=== PATIENT | female | born 1980 | race Caucasian/White ===

== ENCOUNTER 2019-11-19 12:29 | Inpatient (IN) ==
[2019-11-19 13:26] LABS: URINE SOURCE CLEAN CATCH
[2019-11-19 13:37] LABS: BILIRUBIN URINE NEGATIVE (NEGATIVE); BLOOD URINE NEGATIVE (NEGATIVE); COLOR YELLOW; GLUCOSE URINE NEGATIVE (NEGATIVE); KETONE URINE TRACE mg/dL (NEGATIVE); LEUKOCYTES URINE NEGATIVE (NEGATIVE); NITRITE URINE NEGATIVE (NEGATIVE); PROTEIN URINE 30 mg/dL (NEGATIVE); SP GRAVITY URINE 1.026; TURBIDITY URINE CLEAR (CLEAR); UROBILINOGEN URINE 2 mg/dL (NORMAL)
[2019-11-19 13:39] LABS: UR EPITHELIAL CELLS <10 /HPF (<10); URINE BACTERIA NEGATIVE /HPF; URINE RBC <10 /HPF (<10); URINE WBC <10 /HPF (<10)
[2019-11-19 13:49] LABS: BASO# 0.04 X1000 (0.0-0.2); BASO% 0.3 % (0.0-0.8); EOS# 0.04 X1000 (0.0-0.7); EOS% 0.3 % (0.0-10.0); HEMATOCRIT 15.5 % (37.0-47.0); IMM GRAN# 0.11 X1000 (0.0-0.04); IMM GRAN% 0.7 % (0.0-0.5); LYMPH# 2.55 X1000 (1.2-3.4); LYMPH% 16.6 % (20.5-51.1); MCH 27.3 PG (27-31); MCV 93.9 FL (81-99); MONO# 0.76 X1000 (0.11-0.59); MONO% 4.9 % (1.7-9.3); MPV 9.4 FL (7.4-10.4); NEUT% 77.2 % (42.2-75.2); PLT 601 X1000 (130-400); RBC 1.65 XMIL (4.2-5.4)
[2019-11-19 13:51] LABS: HEMOGLOBIN 4.5 g/dL (12.0-16.0)
[2019-11-19 13:58] LABS: ANISOCYTOSIS 1+; EOS 2 % (1-10); HYPOCHROM 1+; LYMPHS 14 % (21-51); MICROCYTOSIS 1+; MONO 3 % (1-9); SEGS 81 % (42-75)
[2019-11-19] MEDS ORDERED: NS 500 ML IV ONE (14:05)
[2019-11-19 14:15] LABS: AGAP 15; ALBUMIN 3.6 g/dL (3.5-5.0); ALKALINE PHOSPHATASE 148 U/L (32-104); BUN 11 mg/dL (8-22); CALCIUM 8.4 mg/dL (8.8-10.2); CHLORIDE 103 mmol/L (98-107); COSMO 276; CREATININE 0.8 mg/dL (0.5-0.9); ESTIMATED GFR > 60; GLUCOSE 78 mg/dL (70-104); GOT 13 U/L (10-30); GPT 7 U/L (10-36); LIPASE 9 U/L (13-60); POTASSIUM 3.3 mmol/L (3.5-5.1); SODIUM 139 mmol/L (136-145); TCO2 21 mmol/L (25-35); TOTAL PROTEIN 7.2 g/dL (6.3-8.3)
[2019-11-19 14:18] LABS: TOTAL BILIRUBIN < 0.15 mg/dL (0.20-1.00)
[2019-11-19 14:44] LABS: INR 0.94; PROTIME 12.6 Seconds (11.0-16.0)
[2019-11-19 14:45] LABS: PTT 33.7 Seconds (22.3-41.8)
--- NOTE | 2019-11-19 15:24 | Diag Imaging Result Doc PS360 ---
US PELVIC NON-OB COMPLETE - 11/19/2019 INDICATION: post miscarriage, eval for retained products TECHNIQUE: Endovaginal COMPARISON: 10/12/2019 FINDINGS: The endometrial canal is thickened and contains heterogeneous echogenic tissue. This measures up to 2.9 cm in maximum width. No pelvic free fluid. Both ovaries are normal. The right ovary measures 2.8 x 1.2 x 1.3 cm. The left ovary measures 2.1 x 1 x 1 cm. Normal ovarian blood flow. IMPRESSION: Findings concerning for retained products of conception in the endometrium. Electronically signed by Nando Calloway 11/19/2019 3:21 PM
[2019-11-19 16:30] LABS: UR AMPHETAMINES QUAL PRESUMPTIVE POSITIVE (NONE DETECT); UR BARBITUATES QUAL PRESUMPTIVE POSITIVE (NONE DETECT); UR BENZODIAZEPIN QUAL PRESUMPTIVE POSITIVE (NONE DETECT); UR CANNABINOIDS QUAL PRESUMPTIVE POSITIVE (NONE DETECT); UR COCAINE QUAL NONE DETECTED (NONE DETECT); UR METHADONE QUAL NONE DETECTED (NONE DETECT); UR OPIATES QUAL NONE DETECTED (NONE DETECT); UR OXYCODONE QUAL NONE DETECTED (NONE DETECT); UR PCP QUAL NONE DETECTED (NONE DETECT)
[2019-11-19] MEDS ORDERED: LR 1,000 ML IV SCH (17:15)
--- NOTE | 2019-11-19 17:53 | PROVIDER DOCUMENTATION ---
This chart was entered by Bisi Nathan Scribe, acting as scribe for Luis Alfredo Cummings MD. HPI-Female /OB/Breast - General Chief Complaint: Female Stated Complaint: EXTREMITY PAIN FROM MISCARRAIGE Time Seen by Provider: 11/19/19 13:55 Source: reports: patient Allergies/Adverse Reactions: Patient Allergies Allergy/AdvReac Type Severity Reaction Status Date / Time sulfamethoxazole Allergy HIVES Verified 11/19/19 13:59 [From Bactrim] trimethoprim [From Bactrim] Allergy HIVES Verified 11/19/19 13:59 Home Medications: Home Medication List Medication Instructions Recorded Confirmed Last Taken Type Buprenorphine/Naloxone S.l. 1 ea SUBLINGUAL QAM 11/19/19 11/19/19 1 Day Ago History [Suboxone 8 mg/2 mg Film] ~11/18/19 - History of Present Illness-Female /OB Nature of Presenting Problem: Patient is a 39 year old female who presents with vaginal bleeding. States back pain and shortness of breath with vaginal bleeding. Reports she was and did not know she was. States her water broke on October 09, 2019 then she was seen at [facility] on October 12, 2019 and was informed that she was and her cervix was closed. Reports she delivered the fetus on October 13 at home. Denies seeing by a doctor after. Does patient report she is ?: No Location of complaint: reports: vaginal Quality of Pain: reports: none Severity in ED: reports: moderate Onset/Duration: reports: gradual Timing: reports: still present Context/Activities at Onset: reports: light activity Vaginal Bleeding Amount: Copious/Excessive Associated Symptoms: reports: back/neck pain (back pain), other (shortness of breath) Similar Symptoms Previously?: Yes Recently seen or treated by another doctor?: Yes Review of Systems - Adult - REVIEW OF SYSTEMS - ADULT Constitutional: reports: no symptoms reported Eyes: reports: no symptoms reported Ears, Nose, Mouth & Throat: reports: no symptoms reported Cardiovascular: reports: no symptoms reported Respiratory: reports: see HPI, shortness of breath Gastrointestinal: reports: no symptoms reported Genitourinary: reports: see HPI, other (vaginal bleeding) Musculoskeletal: reports: see HPI, back pain Integumentary: reports: no symptoms reported Neurological: reports: no symptoms reported Psychiatric: reports: no symptoms reported Endocrine: reports: no symptoms reported Hematologic/Lymphatic: reports: no symptoms reported Allergic/Immunologic: reports: no symptoms reported All Other Systems: Reviewed and Negative Past History - Adult - PAST MEDICAL HISTORY-ADULT Review of Records: reports: Old Records Reviewed, Nursing Assessment Review, Medications Reviewed, Social history reviewed & non-contributory. Major Childhood Illnesses: reports: denies history Cardiovascular: reports: HTN Respiratory: reports: denies history Gastrointestinal: reports: denies history Obstetrical/Gynecological: reports: other (cervical ca) Genitourinary: reports: denies history Musculoskeletal: reports: chronic pain Neurological: reports: Seizures/Epilepsy Psychiatric: reports: anxiety, other (opioid addiction) Endocrine/Immune: reports: denies history Other Conditions: reports: denies history - PRIOR SURGERIES/PROCEDURES Surgical/Procedure History: reports: other (cervix) - PRIOR HOSPITALIZATIONS Prior Hospitalizations: reports: none - IMMUNIZATION STATUS Childhood Immunizations: UTD, See Nurse Assessment Flu Vaccine: See Nurse Assessment - FAMILY HISTORY Family History: reviewed, not pertinent - SOCIAL HISTORY Smoking: cigarettes, less than 1 pack/day Provider spent 3-5 mins advising pt. on dangers of tobacco.: Discussed manners to quit use, and f/u contacts for add'l counseling. Substance Use: denies Physical Exam-General - PHYSICAL EXAM-ADULT Initial Vital Signs Reviewed: Yes - CONSTITUTIONAL General Appearance: alert, no apparent distress - EYES Eyes: pale conjunctivae - HEAD, EARS, NOSE, MOUTH & THROAT HENMT: normocephalic/atraumatic, other (poor dentition) - RESPIRATORY Respiratory: chest non-tender, lungs clear, normal breath sounds - CARDIOVASCULAR Cardiovascular: no gallop, no murmur, tachycardia - GASTROINTESTINAL (ABDOMEN) Abdominal Exam: normal bowel sounds, non tender, soft - SKIN Integumentary: normal turgor, warm/dry, pallor - NEUROLOGIC Neurologic: grossly normal - PSYCHIATRIC Psych/Mental Status: normal mood/affect, normal thought content, normal thought process, oriented x 3 Progress - PLAN OF CARE/RESULTS Progress/Plan/Lab Results: Vital Signs - 8 hr 11/19/19 12:38 11/19/19 14:25 11/19/19 15:13 Temperature 98.2 F 98 F 98 F Pulse Rate 123 H 116 H 102 H Respiratory Rate 19 18 18 Blood Pressure 128/72 109/70 112/82 O2 Sat by Pulse Oximetry 100 100 97 01/21/20 15:55 11/19/19 16:16 11/19/19 16:18 Temperature 98.2 F 98.4 F 98.2 F Pulse Rate 105 H 117 H 98 H Respiratory Rate 16 18 16 Blood Pressure 112/82 104/72 110/89 O2 Sat by Pulse Oximetry 95 96 99 11/19/19 17:24 11/19/19 17:58 Temperature 98.4 F 98.4 F Pulse Rate 100 H 106 H Respiratory Rate 18 18 Blood Pressure 106/76 116/86 O2 Sat by Pulse Oximetry 97 96 Bedside Urine ED: Urine Bedside Start: 11/19/19 12:52 Freq: ORDERED Status: Active Protocol: Activity Type Activity Date Activity User E-Sign Co-Sign Detail Recorded Client Recorded Date Recorded By Document 11/19/19 14:22 [id number] 11/19/19 14:22 [id number] 11/19/19 14:22 Point of Care [Bedside Point of Care] -Lot # NA - Results Negative -Control Line Visible? No Laboratory Results - last 24 hr 11/19/19 11/19/19 11/19/19 12:48 12:48 12:48 WBC 15.40 H RBC 1.65 L Hgb 4.5 L* Hct 15.5 L MCV 93.9 MCH 27.3 MCHC 29.0 L RDW Std Deviation 15.0 H Plt Count 601 H MPV 9.4 Immature Gran % (Auto) 0.7 H Neut % (Auto) 77.2 H Lymph % (Auto) 16.6 L Cobb % (Auto) 4.9 Eos % (Auto) 0.3 Baso % (Auto) 0.3 Immature Gran # (Auto) 0.11 H Neut # (Auto) 11.90 H Lymph # (Auto) 2.55 Cobb # (Auto) 0.76 H Eos # (Auto) 0.04 Baso # (Auto) 0.04 Segmented Neutrophils 81 H Lymphocytes 14 L Monocytes 3 Eosinophils 2 Hypochromia 1+ Anisocytosis 1+ Microcytosis 1+ PT INR PTT (Actin FS) Sodium 139 Potassium 3.3 L Chloride 103 Carbon Dioxide 21 L Anion Gap 15 BUN 11 Creatinine 0.8 Estimated GFR/1.73 m2 > 60 BUN/Creatinine Ratio 14 Glucose 78 Calculated Osmolality 276 Calcium 8.4 L Total Bilirubin < 0.15 L AST 13 ALT 7 L Alkaline Phosphatase 148 H Total Protein 7.2 Albumin 3.6 Globulin 3.6 Albumin/Globulin Ratio 1.0 Lipase 9 L Ser , Semi-Qnt 28.4 Urine Source Urine Color Urine Turbidity Urine pH Ur Specific Henderson Urine Protein Ur Glucose (Stick) Ur Ketones (Stick) Urine Blood Urine Nitrite Urine Bilirubin Urobilinogen Dipstick Urine Leukocytes Urine WBC (Auto) Urine RBC (Auto) U Epithel Cells (Auto) Urine Bacteria (Auto) Urine Test Urine Opiates Screen Ur Oxycodone Screen Ur Methadone, Qual Ur Barbiturates Screen Ur Phencyclidine Scrn Ur Amphetamines Screen U Benzodiazepines Scrn Urine Cocaine Screen U Cannabinoids Screen Blood Type Antibody Screen Crossmatch 11/19/19 11/19/19 11/19/19 12:50 12:50 12:50 WBC RBC Hgb Hct MCV MCH MCHC RDW Std Deviation Plt Count MPV Immature Gran % (Auto) Neut % (Auto) Lymph % (Auto) Cobb % (Auto) Eos % (Auto) Baso % (Auto) Immature Gran # (Auto) Neut # (Auto) Lymph # (Auto) Cobb # (Auto) Eos # (Auto) Baso # (Auto) Segmented Neutrophils Lymphocytes Monocytes Eosinophils Hypochromia Anisocytosis Microcytosis PT INR PTT (Actin FS) Sodium Potassium Chloride Carbon Dioxide Anion Gap BUN Creatinine Estimated GFR/1.73 m2 BUN/Creatinine Ratio Glucose Calculated Osmolality Calcium Total Bilirubin AST ALT Alkaline Phosphatase Total Protein Albumin Globulin Albumin/Globulin Ratio Lipase Ser , Semi-Qnt Urine Source CLEAN CATCH Urine Color YELLOW Urine Turbidity CLEAR Urine pH 6.0 Ur Specific Henderson 1.026 Urine Protein 30 A Ur Glucose (Stick) NEGATIVE Ur Ketones (Stick) TRACE A Urine Blood NEGATIVE Urine Nitrite NEGATIVE Urine Bilirubin NEGATIVE Urobilinogen Dipstick 2 A Urine Leukocytes NEGATIVE Urine WBC (Auto) <10 Urine RBC (Auto) <10 U Epithel Cells (Auto) <10 Urine Bacteria (Auto) NEGATIVE Urine Test WEAK POSITIVE Urine Opiates Screen NONE DETECTED Ur Oxycodone Screen NONE DETECTED Ur Methadone, Qual NONE DETECTED Ur Barbiturates Screen PRESUMPTIVE POSITIVE A Ur Phencyclidine Scrn NONE DETECTED Ur Amphetamines Screen PRESUMPTIVE POSITIVE A U Benzodiazepines Scrn PRESUMPTIVE POSITIVE A Urine Cocaine Screen NONE DETECTED U Cannabinoids Screen PRESUMPTIVE POSITIVE A Blood Type Antibody Screen Crossmatch 11/19/19 11/19/19 14:00 14:00 WBC RBC Hgb Hct MCV MCH MCHC RDW Std Deviation Plt Count MPV Immature Gran % (Auto) Neut % (Auto) Lymph % (Auto) Cobb % (Auto) Eos % (Auto) Baso % (Auto) Immature Gran # (Auto) Neut # (Auto) Lymph # (Auto) Cobb # (Auto) Eos # (Auto) Baso # (Auto) Segmented Neutrophils Lymphocytes Monocytes Eosinophils Hypochromia Anisocytosis Microcytosis PT 12.6 INR 0.94 PTT (Actin FS) 33.7 Sodium Potassium Chloride Carbon Dioxide Anion Gap BUN Creatinine Estimated GFR/1.73 m2 BUN/Creatinine Ratio Glucose Calculated Osmolality Calcium Total Bilirubin AST ALT Alkaline Phosphatase Total Protein Albumin Globulin Albumin/Globulin Ratio Lipase Ser , Semi-Qnt Urine Source Urine Color Urine Turbidity Urine pH Ur Specific Henderson Urine Protein Ur Glucose (Stick) Ur Ketones (Stick) Urine Blood Urine Nitrite Urine Bilirubin Urobilinogen Dipstick Urine Leukocytes Urine WBC (Auto) Urine RBC (Auto) U Epithel Cells (Auto) Urine Bacteria (Auto) Urine Test Urine Opiates Screen Ur Oxycodone Screen Ur Methadone, Qual Ur Barbiturates Screen Ur Phencyclidine Scrn Ur Amphetamines Screen U Benzodiazepines Scrn Urine Cocaine Screen U Cannabinoids Screen Blood Type A POSITIVE Antibody Screen NEGATIVE Crossmatch See Detail Orders Category Date Time Status [facility] Routine [id number] 11/19/19 17:01 Active Consent for Surgery DIRECTED Care 11/19/19 17:01 Active Consent for Test/Procedure DIRECTED Care 11/19/19 14:05 Active ED: Urine Bedside ORDERED Care 11/19/19 12:52 Active Misc. NRSG Communication Order DIRECTED Care 11/19/19 17:01 Active Notify MD if DIRECTED Care 11/19/19 14:05 Active Notify MD if DIRECTED Care 11/19/19 17:01 Active Transfuse .Give-Transfuse Care 11/19/19 14:06 Active Vital Signs Order Q 4-HR ASSESS Care 11/19/19 17:01 Active NPO Diet 11/19/19 12:52 Active US PELVIC NON-OB COMPLETE [US] Stat Exams 11/19/19 14:07 Completed CBC WITH DIFF [HEME] Stat Lab 11/19/19 12:48 Completed CBC WITH NO DIFF [HEME] Timed Lab 11/20/19 06:00 Uncollected COMPREHENSIVE METABOLIC PANEL [CHEM] Stat Lab 11/19/19 12:48 Completed LIPASE [CHEM] Stat Lab 11/19/19 12:48 Completed LRPC (RED CELLS) [BBK] Stat Lab 11/19/19 14:00 Results TEST-URINE [PREG] Stat Lab 11/19/19 12:50 Completed PROTIME WITH INR [COAG] Stat Lab 11/19/19 14:00 Completed PTT [COAG] Stat Lab 11/19/19 14:00 Completed QUANT TEST Stat Lab 11/19/19 12:48 Completed TYPE & SCREEN [BBK] Stat Lab 11/19/19 14:00 Results UA NIMS W/REFLEX CULT [URINALYSIS] Stat Lab 11/19/19 12:50 Completed URINE DRUG SCREEN Stat Lab 11/19/19 12:50 Completed 0.9% Sodium Chloride Inj [Ns] 500 ml Med 11/19/19 14:05 Active IV 30 mls/hr Lactated Ringers Inj [Lr] 1,000 ml Med 11/19/19 17:15 Active IV 125 mls/hr Abd Pain/OB <20 weeks Stat Oth 11/19/19 12:51 Ordered 1505 - Dr. Brown assessed the patient in the ED. Dr. Brown states the patient's cervix is closed and she does not have active bleeding currently. Plan for admission to Dr. Brown. Result Diagrams: 11/19/19 12:48 11/19/19 12:48 - ULTRASOUND (By Radiology) 1 US Study: Pelvic Impression: See EMR Report ( US PELVIC NON-OB COMPLETE - 11/19/2019 INDICATION: post miscarriage, eval for retained products TECHNIQUE: Endovaginal COMPARISON: 10/12/2019 FINDINGS: The endometrial canal is thickened and contains heterogeneous echogenic tissue. This measures up to 2.9 cm in maximum width. No pelvic free fluid. Both ovaries are normal. The right ovary measures 2.8 x 1.2 x 1.3 cm. The left ovary measures 2.1 x 1 x 1 cm. Normal ovarian blood flow. IMPRESSION: Findings concerning for retained products of conception in the endometrium. Electronically signed by Nando Calloway 11/19/2019 3:21 PM 11/19/19 1521 Interpreting Physician: Nando Calloway MD Dictated Date/Time: 11/19/19 1516 cc: Luis Alfredo Cummings MD; None,PCP) - CONSULTS/PCP/HOSPITALIST Notification #1 *Consult/PCP/Hospitalist*: Dr. Brown paged at [phone] Time Discussed: 14:50 Reason/Comments: Dr. Cummings consulted with Dr. Brown about patient. Consult Disposition: Will see in ED #2 Consult: Dr. Brown Time Discussed: 15:31 Reason/Comments: Dr. Cummings updated Dr. Brown about patient's US #3 Consult: Dr. Brown Time Discussed: 16:49 Reason/Comments: Dr. Cummings consulted with Dr. Brown about patient. Consult Disposition: Admit Departure - Departure Date of Disposition Decision: 11/19/19 Time of Disposition Decision: 16:49 DIAGNOSIS: Retained products of conception Anemia Qualifiers: Anemia type: unspecified type Qualified Code(s): D64.9 - Anemia, unspecified Disposition: ADMITTED INPATIENT 09 Certified Medical Emergency: Emergent Condition: Serious Referrals and Follow-Ups: None,PCP [Primary Care Provider] - - Critical Care Note This patient required my direct & personal management of CC.: Yes Total Time (mins): 34 Critical Care Statement: This patient required my direct personal management to treat or rule out processes, the absence of which, could potentiallly result in sudden, clinically significant life or limb threatening deterioration. Attestation - Physician/ TSERING Attestation The physician spent face to face time with patient:: Yes Advanced Practice Provider documentation review:: Supervising physician onsite and consulted in the evaluation and care of this patient. The physician did have a face to face encounter with the patient. This chart was documented by the indicated scribe, (Bisi aNthan Scribe) and accurately reflects the services I performed and decisions made by me, Luis Alfredo Cummings MD, as attested by the provider's signature.
--- NOTE | 2019-11-19 20:27 | HISTORY AND PHYSICAL ---
HISTORY OF PRESENT ILLNESS: Ms. Pat is a 39-year-old white female G9, P1-3-5-1 with a history of multiple spontaneous abortions and elective abortions who presents to [facility] with a complaint of abnormal uterine bleeding. Current history is significant for an IUFD diagnosed at 19 weeks' gestation on 10/12/2019 at [facility]. The patient was discharged from [facility] with p.o. doxycycline 500 mg b.i.d. for 7 days and 2 days after discharge, the patient reports on 10/14/2019 having a spontaneous . However, after the patient continued to bleed, passing 6 cm clots 1 to 2 times a day. The patient is unsure if she passed placenta. Since delivery of 19 week fetus, the patient has been experiencing exhaustion, shortness of breath, tachycardia with the abnormal bleeding. She denies fevers, chills, or chest pain. PAST MEDICAL HISTORY: Cervical dysplasia, cervical insufficiency, hypertension diagnosed between 2011 and 2013 resolved with clonidine. CURRENT MEDICATIONS: None. ALLERGIES: Bactrim, reaction is hives. SURGICAL HISTORY: Dilation and curettage x3, LEEP procedure, cold knife cone procedure. OBSTETRICAL HISTORY: G9, P1-3-5-1. One full-term vaginal delivery. Three IUFDs greater than 20 weeks. Five spontaneous abortions. [employer] HISTORY: Last menstrual period 06/13/2019. Spotting at the time. Menarche age 16. Admits to a history of Chlamydia and Trichomonas exposure. PAST FAMILY HISTORY: Brother with unknown hemophilia. SOCIAL HISTORY: Positive tobacco use. Admits to half a pack per day. Positive alcohol use. Positive illicit drug use. Admits to using Suboxone and Xanax. PHYSICAL EXAMINATION: VITAL SIGNS: Temperature 98.4 degrees, pulse rate 100, respiration rate 18, blood pressure 106/76, O2 saturation 97% on room air, body mass index 19 kg/m2. GENERAL: No acute distress. Alert, awake, and oriented x3. CARDIOVASCULAR: Positive S1, S2. RESPIRATORY: Clear to auscultation bilaterally. Negative rhonchi, rales, or wheezing. ABDOMEN: Soft, nontender to palpation. PELVIC: Sterile speculum exam: Cervix is closed. No active bleeding noted. Bimanual exam: Retroverted uterus, approximately 8 to 10 cm in size, mobile. Negative cervical motion tenderness. EXTREMITIES: No calf tenderness. Negative pedal edema. LABORATORY STUDIES: WBC 15.4, hemoglobin 4.5, hematocrit 15.5, platelets 601,000. PT 12.6, INR 0.94, PTT 33.7. Creatinine 0.8. Beta HCG quantitative 28.4. Urine drug screen positive for barbiturates, amphetamines, benzodiazepine, cannabinoids. IMAGING STUDIES: Pelvic ultrasound: The endometrial canal is thickened and contains heterogeneous echogenic tissue that measures 2.9 cm in maximum width. No pelvic free fluid. Normal ovarian blood flow. Impression concerning for retained products of conception in the endometrium. ASSESSMENT: Ms. Pat is a 39-year-old 9, para 1-3-5-1, status post delivery of an intrauterine demise at 19 weeks on 10/14/2019, who presents with severe anemia. PLAN: 1. Will admit to Labor and Delivery for observation. 2. Beta HCG quantitative significantly low at 28.4 and patient not actively bleeding. Recommend expected management versus surgical management secondary to admission of illicit drug use, low quantitative, and no active bleeding. 3. Will aggressively replenish replace with packed red blood cells. Plan for 4 units and repeat CBC in the morning. 4. We will monitor closely for active bleeding and possible suction D and C if necessary. 5. Patient counseled on risk of expectant management and possibility of a suction D and C. Risks not limited to infection, bleeding, injury to surrounding organs including uterine puncture, injury to the bowel, bladder, or ureters. The patient understands risk and agrees to plan.
[2019-11-19] MEDS ORDERED: NS 500 ML IV SCH (21:00)
[2019-11-20 05:40] LABS: HEMATOCRIT 32.6 % (37.0-47.0); HEMOGLOBIN 10.5 g/dL (12.0-16.0); MCH 28.5 PG (27-31); MCHC 32.2 g/dL (33-37); MCV 88.3 FL (81-99); MPV 9.1 FL (7.4-10.4); RBC 3.69 XMIL (4.2-5.4); WBC 12.61 X1000 (4.8-10.8)
--- NOTE | 2019-11-20 08:09 | OB/GYN PROGRESS NOTE ---
- Subjective 39 yo 5 weeks s/p SAB of IUFD at 19 weeks with anemia,? retained POCs, illicit drug use, Hx recurrent SAB, Hx cervical dysplasia, Hx cervical insufficiency Patient seen and examined. She notes some vaginal bleeding overnight, dark red. Pad with minimal blood on it currently. She received 4 u PRBCs and hgb johnie appropriately from 4.5>10.5. She denies any nausea,vomiting, fever,chills. She has ambulated in the room and denies dizziness/lightheadedness. OB Physical Exam Vital Signs - 8 hr 11/20/19 00:42 11/20/19 01:01 11/20/19 03:15 Temperature 98.3 F 98.5 F 98.4 F Pulse Rate 97 H 96 H 84 Respiratory Rate 18 18 18 Blood Pressure 123/69 131/79 113/66 O2 Sat by Pulse Oximetry 100 100 - CONSTITUTIONAL General Appearance: alert, no apparent distress, thin - EYES Eyes: PERRL/EOMI - HEAD, EARS, NOSE, MOUTH & THROAT HENMT: normocephalic/atraumatic - RESPIRATORY Respiratory: lungs clear, normal breath sounds, no respiratory distress - CARDIOVASCULAR Cardiovascular: regular rate, rhythm, no edema - GASTROINTESTINAL (ABDOMEN) Abdominal Exam: non tender, soft - MUSCULOSKELETAL Extremity: normal range of motion, non-tender, no pedal edema - NEUROLOGIC Neurologic: grossly normal - PSYCHIATRIC Psych/Mental Status: disheveled Active Medications Generic Name Dose Route Start Last Admin Trade Name Freq PRN Reason Stop Dose Admin Sodium Chloride 500 mls @ 30 mls/hr 11/19/19 21:00 11/19/19 21:46 Ns IV 30 mls/hr .[id number] DARIELA Administration Bedside Urine ED: Urine Bedside Start: 11/19/19 12:52 Freq: ORDERED Status: Complete Protocol: Activity Type Activity Date Activity User E-Sign Co-Sign Detail Recorded Client Recorded Date Recorded By Document 11/19/19 14:22 [id number] 11/19/19 14:22 [id number] Edit Status 11/19/19 20:50 [id number] Active=>Complete [id number] 11/19/19 20:50 [id number] 11/19/19 14:22 Point of Care [Bedside Point of Care] -Lot # NA - Results Negative -Control Line Visible? No Laboratory Results - last 24 hr 11/19/19 11/19/19 11/19/19 12:48 12:48 12:48 WBC 15.40 H RBC 1.65 L Hgb 4.5 L* Hct 15.5 L MCV 93.9 MCH 27.3 MCHC 29.0 L RDW Std Deviation 15.0 H Plt Count 601 H MPV 9.4 Immature Gran % (Auto) 0.7 H Neut % (Auto) 77.2 H Lymph % (Auto) 16.6 L [place] % (Auto) 4.9 Eos % (Auto) 0.3 Baso % (Auto) 0.3 Immature Gran # (Auto) 0.11 H Neut # (Auto) 11.90 H Lymph # (Auto) 2.55 [place] # (Auto) 0.76 H Eos # (Auto) 0.04 Baso # (Auto) 0.04 Segmented Neutrophils 81 H Lymphocytes 14 L Monocytes 3 Eosinophils 2 Hypochromia 1+ Anisocytosis 1+ Microcytosis 1+ PT INR PTT (Actin FS) Sodium 139 Potassium 3.3 L Chloride 103 Carbon Dioxide 21 L Anion Gap 15 BUN 11 Creatinine 0.8 Estimated GFR/1.73 m2 > 60 BUN/Creatinine Ratio 14 Glucose 78 Calculated Osmolality 276 Calcium 8.4 L Total Bilirubin < 0.15 L AST 13 ALT 7 L Alkaline Phosphatase 148 H Total Protein 7.2 Albumin 3.6 Globulin 3.6 Albumin/Globulin Ratio 1.0 Lipase 9 L Ser , Semi-Qnt 28.4 Urine Source Urine Color Urine Turbidity Urine pH Ur Specific [place] Urine Protein Ur Glucose (Stick) Ur Ketones (Stick) Urine Blood Urine Nitrite Urine Bilirubin Urobilinogen Dipstick Urine Leukocytes Urine WBC (Auto) Urine RBC (Auto) U Epithel Cells (Auto) Urine Bacteria (Auto) Urine Test Urine Opiates Screen Ur Oxycodone Screen Ur Methadone, Qual Ur Barbiturates Screen Ur Phencyclidine Scrn Ur Amphetamines Screen U Benzodiazepines Scrn Urine Cocaine Screen U Cannabinoids Screen Blood Type Antibody Screen Crossmatch 11/19/19 11/19/19 11/19/19 12:50 12:50 12:50 WBC RBC Hgb Hct MCV MCH MCHC RDW Std Deviation Plt Count MPV Immature Gran % (Auto) Neut % (Auto) Lymph % (Auto) [place] % (Auto) Eos % (Auto) Baso % (Auto) Immature Gran # (Auto) Neut # (Auto) Lymph # (Auto) [place] # (Auto) Eos # (Auto) Baso # (Auto) Segmented Neutrophils Lymphocytes Monocytes Eosinophils Hypochromia Anisocytosis Microcytosis PT INR PTT (Actin FS) Sodium Potassium Chloride Carbon Dioxide Anion Gap BUN Creatinine Estimated GFR/1.73 m2 BUN/Creatinine Ratio Glucose Calculated Osmolality Calcium Total Bilirubin AST ALT Alkaline Phosphatase Total Protein Albumin Globulin Albumin/Globulin Ratio Lipase Ser , Semi-Qnt Urine Source CLEAN CATCH Urine Color YELLOW Urine Turbidity CLEAR Urine pH 6.0 Ur Specific [place] 1.026 Urine Protein 30 A Ur Glucose (Stick) NEGATIVE Ur Ketones (Stick) TRACE A Urine Blood NEGATIVE Urine Nitrite NEGATIVE Urine Bilirubin NEGATIVE Urobilinogen Dipstick 2 A Urine Leukocytes NEGATIVE Urine WBC (Auto) <10 Urine RBC (Auto) <10 U Epithel Cells (Auto) <10 Urine Bacteria (Auto) NEGATIVE Urine Test WEAK POSITIVE Urine Opiates Screen NONE DETECTED Ur Oxycodone Screen NONE DETECTED Ur Methadone, Qual NONE DETECTED Ur Barbiturates Screen PRESUMPTIVE POSITIVE A Ur Phencyclidine Scrn NONE DETECTED Ur Amphetamines Screen PRESUMPTIVE POSITIVE A U Benzodiazepines Scrn PRESUMPTIVE POSITIVE A Urine Cocaine Screen NONE DETECTED U Cannabinoids Screen PRESUMPTIVE POSITIVE A Blood Type Antibody Screen Crossmatch 11/19/19 11/19/19 11/20/19 14:00 14:00 05:24 WBC 12.61 H RBC 3.69 L Hgb 10.5 L D Hct 32.6 L D MCV 88.3 MCH 28.5 MCHC 32.2 L RDW Std Deviation 15.0 H Plt Count 408 H D MPV 9.1 Immature Gran % (Auto) Neut % (Auto) Lymph % (Auto) [place] % (Auto) Eos % (Auto) Baso % (Auto) Immature Gran # (Auto) Neut # (Auto) Lymph # (Auto) [place] # (Auto) Eos # (Auto) Baso # (Auto) Segmented Neutrophils Lymphocytes Monocytes Eosinophils Hypochromia Anisocytosis Microcytosis PT 12.6 INR 0.94 PTT (Actin FS) 33.7 Sodium Potassium Chloride Carbon Dioxide Anion Gap BUN Creatinine Estimated GFR/1.73 m2 BUN/Creatinine Ratio Glucose Calculated Osmolality Calcium Total Bilirubin AST ALT Alkaline Phosphatase Total Protein Albumin Globulin Albumin/Globulin Ratio Lipase Ser , Semi-Qnt Urine Source Urine Color Urine Turbidity Urine pH Ur Specific [place] Urine Protein Ur Glucose (Stick) Ur Ketones (Stick) Urine Blood Urine Nitrite Urine Bilirubin Urobilinogen Dipstick Urine Leukocytes Urine WBC (Auto) Urine RBC (Auto) U Epithel Cells (Auto) Urine Bacteria (Auto) Urine Test Urine Opiates Screen Ur Oxycodone Screen Ur Methadone, Qual Ur Barbiturates Screen Ur Phencyclidine Scrn Ur Amphetamines Screen U Benzodiazepines Scrn Urine Cocaine Screen U Cannabinoids Screen Blood Type A POSITIVE Antibody Screen NEGATIVE Crossmatch See Detail TVUS FINDINGS: The endometrial canal is thickened and contains heterogeneous echogenic tissue. This measures up to 2.9 cm in maximum width. No pelvic free fluid. Both ovaries are normal. The right ovary measures 2.8 x 1.2 x 1.3 cm. The left ovary measures 2.1 x 1 x 1 cm. Normal ovarian blood flow. IMPRESSION: Findings concerning for retained products of conception in the endometrium. OB Assessment & Plan (1) SAB (spontaneous ) Status: Acute Plan: 39 yo 5 weeks s/p SAB of IUFD at 19 weeks with anemia, ? retained products of conception, illicit drug use, Hx recurrent SABs, Hx cervical dysplasia, Hx cervical insufficiency 1. HD stable, afebrile 2. Monitor pad counts for heavy bleeding 3. s/p 4uPRBCs
[2019-11-20] MEDS ORDERED: DIPRIVAN 1% ONE (13:05)
[2019-11-20] MEDS ORDERED: FENTANYL ONE (13:05)
[2019-11-20] MEDS ORDERED: QUELICIN (DOSE) ONE (13:06)
--- NOTE | 2019-11-20 13:10 | OB/GYN PROGRESS NOTE ---
- Subjective 39 yo 5 weeks s/p SAB of IUFD at 19 weeks with vaginal bleeding to anemia, ?retained POCs, illicit drug use, Hx recurrent SABs, Hx D&C x 3, Hx cervical dysplasia Patient seen and examined. She is still complaining of heavy vaginal bleeding. Hgb this AM was 10.5, which was an appropriate rise from 4.5 after receiving 4 units of blood last night. TVUS showed echogenic material in the uterus measuring up to 2.9 cm and concerning for retained POCs. Discussed expectant management vs surgical management in the form of a D&C. She desires surgical management at this time. Discussed R/B/A to the procedure. Risks include but are not limited to bleeding, infection, damage to surrounding organs, possible need for blood transfusion, possible need for further operations, and even . Discussed risks of using illicit drugs and their effect on anesthesia. She agrees to proceed. Consent signed. She last ate at 8am. OB Physical Exam Vital Signs - 8 hr 11/20/19 08:01 Temperature 98.1 F Pulse Rate 96 H Respiratory Rate 20 Blood Pressure 138/83 O2 Sat by Pulse Oximetry 100 - CONSTITUTIONAL General Appearance: appears well, alert, no apparent distress - HEAD, EARS, NOSE, MOUTH & THROAT HENMT: normocephalic/atraumatic - RESPIRATORY Respiratory: no respiratory distress - CARDIOVASCULAR Cardiovascular: normal peripheral pulses, regular rate, rhythm - GASTROINTESTINAL (ABDOMEN) Abdominal Exam: non tender, soft - MUSCULOSKELETAL Extremity: normal range of motion - NEUROLOGIC Neurologic: grossly normal - PSYCHIATRIC Psych/Mental Status: disheveled Active Medications Generic Name Dose Route Start Last Admin Trade Name Freq PRN Reason Stop Dose Admin Sodium Chloride 500 mls @ 30 mls/hr 11/19/19 21:00 11/19/19 21:46 Ns IV 30 mls/hr .[id number] DARIELA Administration Bedside Urine ED: Urine Bedside Start: 11/19/19 12:52 Freq: ORDERED Status: Complete Protocol: Activity Type Activity Date Activity User E-Sign Co-Sign Detail Recorded Client Recorded Date Recorded By Document 11/19/19 14:22 [id number] 11/19/19 14:22 [id number] Edit Status 11/19/19 20:50 [id number] Active=>Complete [id number] 11/19/19 20:50 [id number] 11/19/19 14:22 Point of Care [Bedside Point of Care] -Lot # NA - Results Negative -Control Line Visible? No Laboratory Results - last 24 hr 11/19/19 11/19/19 11/19/19 12:48 12:48 12:48 WBC 15.40 H RBC 1.65 L Hgb 4.5 L* Hct 15.5 L MCV 93.9 MCH 27.3 MCHC 29.0 L RDW Std Deviation 15.0 H Plt Count 601 H MPV 9.4 Immature Gran % (Auto) 0.7 H Neut % (Auto) 77.2 H Lymph % (Auto) 16.6 L [place] % (Auto) 4.9 Eos % (Auto) 0.3 Baso % (Auto) 0.3 Immature Gran # (Auto) 0.11 H Neut # (Auto) 11.90 H Lymph # (Auto) 2.55 [place] # (Auto) 0.76 H Eos # (Auto) 0.04 Baso # (Auto) 0.04 Segmented Neutrophils 81 H Lymphocytes 14 L Monocytes 3 Eosinophils 2 Hypochromia 1+ Anisocytosis 1+ Microcytosis 1+ PT INR PTT (Actin FS) Sodium 139 Potassium 3.3 L Chloride 103 Carbon Dioxide 21 L Anion Gap 15 BUN 11 Creatinine 0.8 Estimated GFR/1.73 m2 > 60 BUN/Creatinine Ratio 14 Glucose 78 Calculated Osmolality 276 Calcium 8.4 L Total Bilirubin < 0.15 L AST 13 ALT 7 L Alkaline Phosphatase 148 H Total Protein 7.2 Albumin 3.6 Globulin 3.6 Albumin/Globulin Ratio 1.0 Lipase 9 L Ser , Semi-Qnt 28.4 Urine Source Urine Color Urine Turbidity Urine pH Ur Specific [place] Urine Protein Ur Glucose (Stick) Ur Ketones (Stick) Urine Blood Urine Nitrite Urine Bilirubin Urobilinogen Dipstick Urine Leukocytes Urine WBC (Auto) Urine RBC (Auto) U Epithel Cells (Auto) Urine Bacteria (Auto) Urine Test Urine Opiates Screen Ur Oxycodone Screen Ur Methadone, Qual Ur Barbiturates Screen Ur Phencyclidine Scrn Ur Amphetamines Screen U Benzodiazepines Scrn Urine Cocaine Screen U Cannabinoids Screen Blood Type Antibody Screen Crossmatch 11/19/19 11/19/19 11/19/19 12:50 12:50 12:50 WBC RBC Hgb Hct MCV MCH MCHC RDW Std Deviation Plt Count MPV Immature Gran % (Auto) Neut % (Auto) Lymph % (Auto) [place] % (Auto) Eos % (Auto) Baso % (Auto) Immature Gran # (Auto) Neut # (Auto) Lymph # (Auto) [place] # (Auto) Eos # (Auto) Baso # (Auto) Segmented Neutrophils Lymphocytes Monocytes Eosinophils Hypochromia Anisocytosis Microcytosis PT INR PTT (Actin FS) Sodium Potassium Chloride Carbon Dioxide Anion Gap BUN Creatinine Estimated GFR/1.73 m2 BUN/Creatinine Ratio Glucose Calculated Osmolality Calcium Total Bilirubin AST ALT Alkaline Phosphatase Total Protein Albumin Globulin Albumin/Globulin Ratio Lipase Ser , Semi-Qnt Urine Source CLEAN CATCH Urine Color YELLOW Urine Turbidity CLEAR Urine pH 6.0 Ur Specific [place] 1.026 Urine Protein 30 A Ur Glucose (Stick) NEGATIVE Ur Ketones (Stick) TRACE A Urine Blood NEGATIVE Urine Nitrite NEGATIVE Urine Bilirubin NEGATIVE Urobilinogen Dipstick 2 A Urine Leukocytes NEGATIVE Urine WBC (Auto) <10 Urine RBC (Auto) <10 U Epithel Cells (Auto) <10 Urine Bacteria (Auto) NEGATIVE Urine Test WEAK POSITIVE Urine Opiates Screen NONE DETECTED Ur Oxycodone Screen NONE DETECTED Ur Methadone, Qual NONE DETECTED Ur Barbiturates Screen PRESUMPTIVE POSITIVE A Ur Phencyclidine Scrn NONE DETECTED Ur Amphetamines Screen PRESUMPTIVE POSITIVE A U Benzodiazepines Scrn PRESUMPTIVE POSITIVE A Urine Cocaine Screen NONE DETECTED U Cannabinoids Screen PRESUMPTIVE POSITIVE A Blood Type Antibody Screen Crossmatch 11/19/19 11/19/19 11/20/19 14:00 14:00 05:24 WBC 12.61 H RBC 3.69 L Hgb 10.5 L D Hct 32.6 L D MCV 88.3 MCH 28.5 MCHC 32.2 L RDW Std Deviation 15.0 H Plt Count 408 H D MPV 9.1 Immature Gran % (Auto) Neut % (Auto) Lymph % (Auto) [place] % (Auto) Eos % (Auto) Baso % (Auto) Immature Gran # (Auto) Neut # (Auto) Lymph # (Auto) [place] # (Auto) Eos # (Auto) Baso # (Auto) Segmented Neutrophils Lymphocytes Monocytes Eosinophils Hypochromia Anisocytosis Microcytosis PT 12.6 INR 0.94 PTT (Actin FS) 33.7 Sodium Potassium Chloride Carbon Dioxide Anion Gap BUN Creatinine Estimated GFR/1.73 m2 BUN/Creatinine Ratio Glucose Calculated Osmolality Calcium Total Bilirubin AST ALT Alkaline Phosphatase Total Protein Albumin Globulin Albumin/Globulin Ratio Lipase Ser , Semi-Qnt Urine Source Urine Color Urine Turbidity Urine pH Ur Specific [place] Urine Protein Ur Glucose (Stick) Ur Ketones (Stick) Urine Blood Urine Nitrite Urine Bilirubin Urobilinogen Dipstick Urine Leukocytes Urine WBC (Auto) Urine RBC (Auto) U Epithel Cells (Auto) Urine Bacteria (Auto) Urine Test Urine Opiates Screen Ur Oxycodone Screen Ur Methadone, Qual Ur Barbiturates Screen Ur Phencyclidine Scrn Ur Amphetamines Screen U Benzodiazepines Scrn Urine Cocaine Screen U Cannabinoids Screen Blood Type A POSITIVE Antibody Screen NEGATIVE Crossmatch See Detail OB Assessment & Plan (1) SAB (spontaneous ) Status: Acute Plan: 39 yo 5 weeks s/p SAB of IUFD at 19 weeks with vaginal bleeding to anemia, ?retained POCs, illicit drug use, Hx recurrent SABs, Hx D&C x 3, Hx cervical dysplasia 1. NPO 2. Patient with continued, moderate vaginal bleeding, s/p 4 uRPBCs. VSS 3. Discussed expectant vs. surgical management with suction D&C and she desires to proceed with suction D&C. 4. R/B/A discussed with patient and she agrees to proceed 5. Doxycycline 200mg IV prior to procedure 6. Plan to return to L&D after procedure
[2019-11-20] MEDS ORDERED: DOXYCYCLINE 200 MG in NS 250 ML IV ONE (13:11)
[2019-11-20] MEDS ORDERED: PRECEDEX ONE (13:25)
[2019-11-20] MEDS ORDERED: KETAMINE ONE (13:29)
[2019-11-20] MEDS ORDERED: CYTOTEC ONE ×2 (14:21→14:28)
[2019-11-20] MEDS ORDERED: METHERGINE ONE (14:22)
[2019-11-20] MEDS ORDERED: CYKLOKAPRON 1,000 MG/NS 1,000 MG/100 ML IVPB ONE (14:34)
[2019-11-20 14:43] LABS: BASO# 0.03 X1000 (0.0-0.2); BASO% 0.3 % (0.0-0.8); EOS# 0.07 X1000 (0.0-0.7); EOS% 0.6 % (0.0-10.0); HEMATOCRIT 28.6 % (37.0-47.0); HEMOGLOBIN 9.2 g/dL (12.0-16.0); IMM GRAN% 0.8 % (0.0-0.5); LYMPH# 1.66 X1000 (1.2-3.4); MCH 28.5 PG (27-31); MCHC 32.2 g/dL (33-37); MCV 88.5 FL (81-99); MONO# 0.72 X1000 (0.11-0.59); MONO% 6.1 % (1.7-9.3); NEUT# 9.25 X1000 (1.4-6.5); NEUT% 78.2 % (42.2-75.2); PLT 344 X1000 (130-400); RBC 3.23 XMIL (4.2-5.4); RDW 14.9 % (11.5-14.5); WBC 11.83 X1000 (4.8-10.8)
[2019-11-20] MEDS ORDERED: HEMABATE IM ONE (14:45)
[2019-11-20] MEDS ORDERED: HEMABATE ONE (14:46)
[2019-11-20] MEDS ORDERED: SILVER NITRATE APPLICATOR ONE (15:00)
[2019-11-20] MEDS ORDERED: DILAUDID ONE (15:07)
[2019-11-20] MEDS ORDERED: PITOCIN ONE ×2 (15:10→15:51)
[2019-11-20 15:18] LABS: PTT 30.5 Seconds (22.3-41.8)
[2019-11-20] MEDS ORDERED: OFIRMEV 1000 MG/ISOTONIC SOLN 1,000 MG/100 ML BOTTLE ONE (15:54)
[2019-11-20] MEDS: PHENERGAN ONE ×3 (16:01→16:07)
[2019-11-20] MEDS ORDERED: PHENERGAN IV PRN ×2 (17:49→18:14)
[2019-11-20] MEDS ORDERED: PERCOCET-5 PO PRN ×2 (17:49→18:13)
[2019-11-20] MEDS ORDERED: SODIUM CHLORIDE 0.9% INJ PRN ×2 (17:49→18:14)
[2019-11-20] MEDS ORDERED: PERCOCET-10 PO PRN (17:49)
[2019-11-20] MEDS ORDERED: ZOFRAN ODT PO PRN ×2 (17:49→18:15)
[2019-11-20] MEDS: PERCOCET-10 PO PRN (18:19)
[2019-11-20 20:19] LABS: BASO# 0.02 X1000 (0.0-0.2); BASO% 0.1 % (0.0-0.8); EOS# 0.01 X1000 (0.0-0.7); HEMATOCRIT 33.2 % (37.0-47.0); IMM GRAN# 0.32 X1000 (0.0-0.04); IMM GRAN% 1.4 % (0.0-0.5); LYMPH# 0.37 X1000 (1.2-3.4); LYMPH% 1.7 % (20.5-51.1); MCH 29.3 PG (27-31); MCHC 33.1 g/dL (33-37); MCV 88.5 FL (81-99); MONO# 0.13 X1000 (0.11-0.59); MONO% 0.6 % (1.7-9.3); MPV 8.9 FL (7.4-10.4); NEUT# 21.34 X1000 (1.4-6.5); NEUT% 96.2 % (42.2-75.2); PLT 273 X1000 (130-400); RBC 3.75 XMIL (4.2-5.4); RDW 14.4 % (11.5-14.5); WBC 22.19 X1000 (4.8-10.8)
[2019-11-20 20:32] LABS: PTT 29.1 Seconds (22.3-41.8)
[2019-11-20 20:36] LABS: BANDS 8 % (0-1); LYMPHS 2 % (21-51); SEGS 90 % (42-75)
[2019-11-20 20:37] LABS: AGAP 12; ALBUMIN 2.8 g/dL (3.5-5.0); ALKALINE PHOSPHATASE 182 U/L (32-104); BUN 5 mg/dL (8-22); CALCIUM 8.1 mg/dL (8.8-10.2); CHLORIDE 106 mmol/L (98-107); COSMO 269; CREATININE 0.8 mg/dL (0.5-0.9); ESTIMATED GFR > 60; GLUCOSE 97 mg/dL (70-104); GOT 53 U/L (10-30); GPT 14 U/L (10-36); POTASSIUM 3.2 mmol/L (3.5-5.1); SODIUM 136 mmol/L (136-145); TCO2 18 mmol/L (25-35); TOTAL BILIRUBIN 0.39 mg/dL (0.20-1.00); TOTAL PROTEIN 5.6 g/dL (6.3-8.3)
[2019-11-21] MEDS ORDERED: POTASSIUM CHLORIDE 20% LIQUID PO ONE (00:03)
[2019-11-21] MEDS: MEFOXIN 2 GM/NS 2 GM/50 ML IVPB IV SCH ×4 (00:34→20:02)
--- NOTE | 2019-11-21 02:53 | OPERATIVE NOTE ---
PROCEDURE DATE: 11/20/2019 PREOPERATIVE DIAGNOSES: 1. A 39-year-old G9, P1-3-5-1, five weeks status post spontaneous at 19 weeks with vaginal bleeding to anemia. 2. Retained products of conception. 3. Recent illicit drug use. 4. History of recurrent spontaneous abortions. 5. History of cervical dysplasia. POSTOPERATIVE DIAGNOSES: 1. A 39-year-old G9, P1-3-5-1, five weeks status post spontaneous at 19 weeks with vaginal bleeding to anemia. 2. Retained products of conception. 3. Recent illicit drug use. 4. History of recurrent spontaneous abortions. 5. History of cervical dysplasia. 6. Hemorrhage that occurred after dilation and curettage. PROCEDURE: 1. Pelvic exam under anesthesia. 2. Suction dilation and curettage under ultrasound guidance. SURGEON: Silvio Hunter DO. DECK BUILDER: Celeste Brown. ANESTHESIA: General. FINDINGS: Retained products of conception visualized under ultrasound. Cervix approximately 1 cm dilated. COMPLICATIONS: Patient experienced hemorrhage during suction and curettage and was given uterotonics and 2 units of packed red blood cells with resolution of bleeding. ESTIMATED BLOOD LOSS: 1200 mL. URINE OUTPUT: 400 mL. INTRAVENOUS FLUIDS: Crystalloid 1500 units and 2 units of packed red blood cells. SPECIMEN: Removed products of conception. DRAINS: None. OPERATIVE NOTE: The patient was taken to the operating room where general anesthesia was found to be adequate. She was then prepped and draped in the normal sterile fashion in the dorsal lithotomy position with feet in candy-cane stirrups. A weighted speculum was then placed in the vagina and the cervix visualized and the anterior lip grasped with a ring forceps. The cervix approximately 1 cm dilated and an 8 mm curved suction curette was placed through the cervix under direct visualization with abdominal ultrasound. Moderate amount of tissue and placenta was removed with suction curettage. Several passes were then made with a smooth curette, which also revealed a moderate amount of tissue. At this time, brisk bleeding was noted from the cervix and the procedure was continued and the patient continued to bleed briskly. She was given 800 mcg of rectal Cytotec, 0.2 mg of IM methargen and 0.25 mg of IM Hemabate. Prolonged uterine massage was performed and uterus started to self-firm. During this time, stat CBC and coag's were drawn and transfusion of 2 units of packed red blood cells was initiated. Once the uterus firmed up, another ultrasound was performed, which still revealed retained placental tissue, so multiple passes were made with a smooth curette and a moderate amount of placental tissue was removed. This was performed until no further tissue was visualized on ultrasound. Uterine massage was continued after removal of products of conception. The patient's uterus remained firm and bleeding slowed down. After hemostasis was achieved, the ring forceps was removed from the anterior lip of the cervix and the weighted speculum removed from the vagina. The patient was then awoken and taken to the recovery room. Instrument and needle counts were correct x2. She received doxycycline for antibiotic prophylaxis. We will closely monitor patient's bleeding and obtain serial labs to ensure no further blood transfusion is necessary. [facility]
[2019-11-21] MEDS: DOXYCYCLINE 100 MG in NS 250 ML IV SCH ×2 (03:34→15:03)
[2019-11-21] MEDS: NS 1,000 ML IV SCH ×4 (03:34→20:02)
[2019-11-21 06:49] LABS: BASO# 0.03 X1000 (0.0-0.2); BASO% 0.1 % (0.0-0.8); EOS# 0.01 X1000 (0.0-0.7); HEMATOCRIT 27.6 % (37.0-47.0); HEMOGLOBIN 8.9 g/dL (12.0-16.0); IMM GRAN# 0.15 X1000 (0.0-0.04); IMM GRAN% 0.5 % (0.0-0.5); LYMPH# 0.68 X1000 (1.2-3.4); LYMPH% 2.2 % (20.5-51.1); MCH 29.2 PG (27-31); MCHC 32.2 g/dL (33-37); MCV 90.5 FL (81-99); MONO# 0.37 X1000 (0.11-0.59); MONO% 1.2 % (1.7-9.3); MPV 9.5 FL (7.4-10.4); NEUT# 29.67 X1000 (1.4-6.5); PLT 215 X1000 (130-400); RBC 3.05 XMIL (4.2-5.4); RDW 14.8 % (11.5-14.5); WBC 30.91 X1000 (4.8-10.8)
[2019-11-21 07:19] LABS: AGAP 7; ALB/GLOB RATIO 0.9; ALBUMIN 2.3 g/dL (3.5-5.0); ALKALINE PHOSPHATASE 179 U/L (32-104); BUN 7 mg/dL (8-22); CALCIUM 7.4 mg/dL (8.8-10.2); CHLORIDE 112 mmol/L (98-107); COSMO 272; CREATININE 0.7 mg/dL (0.5-0.9); ESTIMATED GFR > 60; GLUCOSE 96 mg/dL (70-104); GOT 61 U/L (10-30); GPT 18 U/L (10-36); POTASSIUM 4.3 mmol/L (3.5-5.1); SODIUM 137 mmol/L (136-145); TCO2 18 mmol/L (25-35); TOTAL BILIRUBIN 0.23 mg/dL (0.20-1.00); TOTAL PROTEIN 4.9 g/dL (6.3-8.3)
[2019-11-21 07:31] LABS: LYMPHS 3 % (21-51); MONO 1 % (1-9); SEGS 96 % (42-75)
[2019-11-21] MEDS: PERCOCET-10 PO PRN ×3 (07:55→21:24)
--- NOTE | 2019-11-21 08:01 | OB/GYN PROGRESS NOTE ---
- Subjective PO1 D/C retained placenta 19 wks no cx, sitting up vaping vssaf s/nt -cce Hgb 8.0 post proceedure down from 11 WBC 30 96%seg Cefoxitin and Doxy A POD D/C DFIU 19wks heomodynamically stable min lochia markedly elevated WBC w/shift Cef/Doxy Recheck wbc tomorrow no Sn of Sepsis, no fever, ?demargination OB Physical Exam Vital Signs - 8 hr 11/21/19 00:00 11/21/19 04:00 11/21/19 07:42 Temperature 98.7 F 98.0 F 99.6 F Pulse Rate 102 H 98 H 92 H Respiratory Rate 18 18 15 Blood Pressure 97/51 102/67 108/75 O2 Sat by Pulse Oximetry 99 - CONSTITUTIONAL General Appearance: appears well Active Medications Generic Name Dose Route Start Last Admin Trade Name Freq PRN Reason Stop Dose Admin Sodium Chloride 1,000 mls @ 125 mls/hr 11/20/19 17:49 11/21/19 05:11 Ns IV Not Given .Q8H DARIELA Cefoxitin Sodium 2 gm in 50 mls @ 100 mls/hr 11/20/19 23:45 11/21/19 05:23 Mefoxin 2 Gm/Ns IV 100 mls/hr Q6H DARIELA Administration Doxycycline Hyclate 100 mg/ 250 mls @ 125 mls/hr 11/21/19 03:00 11/21/19 03:34 Sodium Chloride IV 125 mls/hr Q12H DARIELA Administration Ondansetron HCl 4 mg 11/20/19 17:49 Zofran Odt PO Q4-6H PRN PRN Nausea And Vomiting Oxycodone/Acetaminophen 1 each 11/20/19 18:13 11/20/19 18:19 Percocet-10 PO 1 each Q4H PRN PRN Administration Pain Oxycodone/Acetaminophen 1 each 11/20/19 18:13 Percocet-5 PO Q4H PRN PRN Pain Promethazine HCl 12.5 mg 11/20/19 18:14 Phenergan IV Q6H PRN PRN Nausea And Vomiting Sodium Chloride 10 ml 11/20/19 18:14 Sodium Chloride 0.9% INJ PRN PRN Dilute Phenergan for IV use Bedside Urine ED: Urine Bedside Start: 11/19/19 12:52 Freq: ORDERED Status: Complete Protocol: Activity Type Activity Date Activity User E-Sign Co-Sign Detail Recorded Client Recorded Date Recorded By Document 11/19/19 14:22 [id number] 11/19/19 14:22 [id number] Edit Status 11/19/19 20:50 [id number] Active=>Complete [id number] 11/19/19 20:50 [id number] 11/19/19 14:22 Point of Care [Bedside Point of Care] -Lot # NA - Results Negative -Control Line Visible? No Laboratory Results - last 24 hr 11/19/19 11/20/19 11/20/19 14:00 14:40 15:00 WBC 11.83 H RBC 3.23 L Hgb 9.2 L Hct 28.6 L MCV 88.5 MCH 28.5 MCHC 32.2 L RDW Std Deviation 14.9 H Plt Count 344 MPV 9.0 Immature Gran % (Auto) 0.8 H Neut % (Auto) 78.2 H Lymph % (Auto) 14.0 L [place] % (Auto) 6.1 Eos % (Auto) 0.6 Baso % (Auto) 0.3 Immature Gran # (Auto) 0.10 H Neut # (Auto) 9.25 H Lymph # (Auto) 1.66 [place] # (Auto) 0.72 H Eos # (Auto) 0.07 Baso # (Auto) 0.03 Segmented Neutrophils Band Neutrophils Lymphocytes Monocytes Pathologist Review PTT (Actin FS) 30.5 Fibrinogen 312.0 Sodium Potassium Chloride Carbon Dioxide Anion Gap BUN Creatinine Estimated GFR/1.73 m2 BUN/Creatinine Ratio Glucose Calculated Osmolality Calcium Total Bilirubin AST ALT Alkaline Phosphatase Total Protein Albumin Globulin Albumin/Globulin Ratio Plasma Lactate Blood Type A POSITIVE Antibody Screen NEGATIVE Crossmatch See Detail 11/20/19 11/20/19 11/20/19 20:11 20:11 20:11 WBC 22.19 H RBC 3.75 L Hgb 11.0 L D Hct 33.2 L MCV 88.5 MCH 29.3 MCHC 33.1 RDW Std Deviation 14.4 Plt Count 273 MPV 8.9 Immature Gran % (Auto) 1.4 H Neut % (Auto) 96.2 H Lymph % (Auto) 1.7 L [place] % (Auto) 0.6 L Eos % (Auto) 0.0 Baso % (Auto) 0.1 Immature Gran # (Auto) 0.32 H Neut # (Auto) 21.34 H Lymph # (Auto) 0.37 L [place] # (Auto) 0.13 Eos # (Auto) 0.01 Baso # (Auto) 0.02 Segmented Neutrophils 90 H Band Neutrophils 8 H Lymphocytes 2 L Monocytes Pathologist Review PTT (Actin FS) 29.1 Fibrinogen 324.0 Sodium 136 Potassium 3.2 L Chloride 106 Carbon Dioxide 18 L Anion Gap 12 BUN 5 L D Creatinine 0.8 Estimated GFR/1.73 m2 > 60 BUN/Creatinine Ratio 6 Glucose 97 Calculated Osmolality 269 Calcium 8.1 L Total Bilirubin 0.39 AST 53 H ALT 14 Alkaline Phosphatase 182 H Total Protein 5.6 L Albumin 2.8 L Globulin 2.8 Albumin/Globulin Ratio 1.0 Plasma Lactate Blood Type Antibody Screen Crossmatch 11/20/19 11/21/19 11/21/19 21: 06:12 06:12 WBC 30.91 H RBC 3.05 L Hgb 8.9 L D Hct 27.6 L MCV 90.5 MCH 29.2 MCHC 32.2 L RDW Std Deviation 14.8 H Plt Count 215 MPV 9.5 Immature Gran % (Auto) 0.5 Neut % (Auto) 96.0 H Lymph % (Auto) 2.2 L [place] % (Auto) 1.2 L Eos % (Auto) 0.0 Baso % (Auto) 0.1 Immature Gran # (Auto) 0.15 H Neut # (Auto) 29.67 H Lymph # (Auto) 0.68 L [place] # (Auto) 0.37 Eos # (Auto) 0.01 Baso # (Auto) 0.03 Segmented Neutrophils 96 H Band Neutrophils Lymphocytes 3 L Monocytes 1 Pathologist Review PTT (Actin FS) Fibrinogen Sodium 137 Potassium 4.3 D Chloride 112 H Carbon Dioxide 18 L Anion Gap 7 BUN 7 L Creatinine 0.7 Estimated GFR/1.73 m2 > 60 BUN/Creatinine Ratio 10 Glucose 96 Calculated Osmolality 272 Calcium 7.4 L Total Bilirubin 0.23 AST 61 H ALT 18 Alkaline Phosphatase 179 H Total Protein 4.9 L Albumin 2.3 L Globulin 2.6 Albumin/Globulin Ratio 0.9 Plasma Lactate 3.0 H Blood Type Antibody Screen Crossmatch 11/21/19 11/21/19 06:12 06:12 WBC RBC Hgb Hct MCV MCH MCHC RDW Std Deviation Plt Count MPV Immature Gran % (Auto) Neut % (Auto) Lymph % (Auto) [place] % (Auto) Eos % (Auto) Baso % (Auto) Immature Gran # (Auto) Neut # (Auto) Lymph # (Auto) [place] # (Auto) Eos # (Auto) Baso # (Auto) Segmented Neutrophils Band Neutrophils Lymphocytes Monocytes Pathologist Review PTT (Actin FS) Fibrinogen 246.0 Sodium Potassium Chloride Carbon Dioxide Anion Gap BUN Creatinine Estimated GFR/1.73 m2 BUN/Creatinine Ratio Glucose Calculated Osmolality Calcium Total Bilirubin AST ALT Alkaline Phosphatase Total Protein Albumin Globulin Albumin/Globulin Ratio Plasma Lactate 0.6 Blood Type Antibody Screen Crossmatch
[2019-11-22 01:11] LABS: BASO# 0.05 X1000 (0.0-0.2); BASO% 0.2 % (0.0-0.8); EOS# 0.15 X1000 (0.0-0.7); EOS% 0.6 % (0.0-10.0); HEMATOCRIT 33.3 % (37.0-47.0); HEMOGLOBIN 10.7 g/dL (12.0-16.0); IMM GRAN# 0.27 X1000 (0.0-0.04); LYMPH# 1.61 X1000 (1.2-3.4); LYMPH% 6.2 % (20.5-51.1); MCH 28.9 PG (27-31); MCHC 32.1 g/dL (33-37); MONO# 0.85 X1000 (0.11-0.59); MONO% 3.3 % (1.7-9.3); MPV 9.6 FL (7.4-10.4); NEUT# 23.11 X1000 (1.4-6.5); NEUT% 88.7 % (42.2-75.2); PLT 234 X1000 (130-400); RDW 15.1 % (11.5-14.5); WBC 26.04 X1000 (4.8-10.8)
[2019-11-22] MEDS: MEFOXIN 2 GM/NS 2 GM/50 ML IVPB IV SCH ×4 (02:27→20:31)
[2019-11-22] MEDS: DOXYCYCLINE 100 MG in NS 250 ML IV SCH ×2 (03:05→16:36)
[2019-11-22] MEDS: NS 1,000 ML IV SCH ×3 (03:06→17:56)
[2019-11-22] MEDS ORDERED: HALL'S COUGH LOZENGE MT PRN (07:53)
[2019-11-22] MEDS: PERCOCET-10 PO PRN (14:05)
[2019-11-23] MEDS: NS 1,000 ML IV SCH (02:41)
[2019-11-23] MEDS: MEFOXIN 2 GM/NS 2 GM/50 ML IVPB IV SCH ×2 (02:41→11:51)
[2019-11-23] MEDS: DOXYCYCLINE 100 MG in NS 250 ML IV SCH (03:44)
[2019-11-23 05:00] LABS: BASO# 0.07 X1000 (0.0-0.2); BASO% 0.5 % (0.0-0.8); EOS# 0.19 X1000 (0.0-0.7); EOS% 1.3 % (0.0-10.0); HEMATOCRIT 31.8 % (37.0-47.0); HEMOGLOBIN 10.2 g/dL (12.0-16.0); IMM GRAN% 2.1 % (0.0-0.5); LYMPH% 13.3 % (20.5-51.1); MCH 28.8 PG (27-31); MCHC 32.1 g/dL (33-37); MCV 89.8 FL (81-99); MONO# 0.62 X1000 (0.11-0.59); MONO% 4.3 % (1.7-9.3); MPV 9.7 FL (7.4-10.4); NEUT# 11.24 X1000 (1.4-6.5); NEUT% 78.5 % (42.2-75.2); PLT 275 X1000 (130-400); RBC 3.54 XMIL (4.2-5.4); RDW 14.9 % (11.5-14.5); WBC 14.32 X1000 (4.8-10.8)
[2019-11-23] MEDS ORDERED: DEPO-PROVERA IM ONE ×2 (06:46→10:30)
[2019-11-23] MEDS ORDERED: KEFLEX PO SCH (08:00)
[2019-11-23] MEDS ORDERED: FLAGYL PO SCH (09:00)
[2019-11-23 09:11] VITALS: BP 132/75
--- NOTE | 2019-11-23 22:13 | DISCHARGE SUMMARY ---
ADMISSION DATE: 11/19/2019 DISCHARGE DATE: 11/23/2019 This patient was admitted on November 19, 2019. She is a 39-year-old white female, 9, para 1, with a history of multiple spontaneous miscarriages. She presented to the emergency room with a complaint of abnormal uterine bleeding. She had a IUFD diagnosed at 19 weeks in September at the [facility]. The patient was discharged from [facility] after having a spontaneous miscarriage. The patient continued to bleed, passing clots, and did not go for evaluation or to her appointment. PAST MEDICAL HISTORY: Remarkable for cervical dysplasia and she has had a history of hypertension. She is allergic to Bactrim. She had a dilatation and curettage x3, a LEEP procedure and a cold knife conization. She has 1 full-term delivery with 3 IUFD's greater than 20 weeks and 5 spontaneous miscarriages. SOCIAL HISTORY: Positive for tobacco, alcohol use, and is also on her Suboxone and Xanax. HOSPITAL COURSE: She was admitted with a hemoglobin of 4.5 and a hematocrit of 15 and an elevated WBC. The drug screen was positive for barbiturates, amphetamines, benzodiazepine, and marijuana. The ultrasound was consistent with retained products. The patient was taken to surgery, which was completed uneventfully. She was transfused 6 units of blood and subsequently had a benign course. She denies any nausea, vomiting, any fever or chills. She feels much better. Her bleeding is scant. She has ambulated and has had no orthostatic changes. Her vital signs on discharge were totally normal. She was afebrile with a pulse of 69 and a respiratory rate of 16. Her blood pressure was 124/79. Her hematocrit was 31.8 with a white count of 14.32. Her initial white count was 26.4 and platelet counts were normal. The patient was discharged home with Keflex and Flagyl. She was given a Depo- Provera shot prior to discharge and will have follow up with the admitting M.D. She was also going to maintain herself on her usual medications and this was discussed in detail that she should take her antibiotics or she may have to return to the hospital. The patient verbalized understanding of all discharge instructions and all questions were answered. [facility]
== END 2019-11-23 11:59 | disposition home or self-care (01) | DRG 770 ==
LOC: ED 12:29 → LD 18:49
PROVIDERS: ADMIT Obstetrics & Gynecology; ATTEND Obstetrics & Gynecology